=== PATIENT | female | born 1990 | race Caucasian/White ===

== ENCOUNTER 2018-12-02 10:08 | Emergency (ER) | payer OTHER ==
[~2018-12-02] VITALS: Ht 165.1 cm; Wt 65.3 kg
[2018-12-02 10:20] VITALS: BP 141/95
--- NOTE | 2018-12-02 10:26 | NUR ---
PT AMBULATED TO ER BED 05
--- NOTE | 2018-12-02 10:40 | NUR ---
PT BIB FRIEND TO THE ED WITH THE CHIEF C/O HEADACHE X TODAY. STATES HEADACHE 8/10 AT THIS TIME. VSS. PER PT, LAMINECTOMY WAS DONE ON October AND IT STARTED TO LEAK SINCE LAST NIGHT. PER PT IT LOOKS CLEAR. "THE GUAGE SOAKS EVERY 45 MINS." SOAKED GUAZE NOTED ON THE BACK. DENIES DIZZINESS OR BLURRY VISION. REPORTS NAUSEA. ER MD AWARE.
[2018-12-02] MEDS ORDERED: NACL 0.9% 1,000 ML IV ONE (11:45)
[2018-12-02] MEDS ORDERED: fentaNYL 0.05 MG/ML VIAL IVP ONE (11:45)
[2018-12-02] MEDS ORDERED: NACL 0.9% 1,000 ML IV SCH (11:56)
[2018-12-02] MEDS ORDERED: MORPHINE SULFATE 2 MG/ML SYR IVP PRN (12:00)
[2018-12-02] MEDS ORDERED: HYDROcodone/APAP 7.5/325 MG 1 TAB PO PRN (12:00)
[2018-12-02] MEDS ORDERED: ONDANSETRON 4 MG/2 ML VIAL IM/IVP PRN (12:00)
[2018-12-02] MEDS ORDERED: DOCUSATE SODIUM 100 MG GELCAP PO PRN (12:00)
[2018-12-02] MEDS ORDERED: ACETAMINOPHEN 325 MG TAB PO PRN (12:00)
--- NOTE | 2018-12-02 12:50 | NUR ---
NO IVF PER ER MD AT THIS TIME.
--- NOTE | 2018-12-02 14:10 | NUR ---
DRESSING CHANGED TO BACK.
--- NOTE | 2018-12-02 15:32 | NUR ---
Patient discharged with v/s stable. Written and verbal after care instructions given and explained. Patient alert, oriented and verbalized understanding of instructions. Ambulatory with steady gait. All questions addressed prior to discharge. ID band removed. Patient advised to follow up with PMD. Rx of MOTRIN AND TRAMADOL given. Patient educated on indication of medication including possible reaction and side effects. Opportunity to ask questions provided and answered.
[2018-12-02 15:33] VITALS: BP 120/78
== END 2018-12-02 15:32 | disposition home or self-care (01) ==
LOC: MED 10:08
DX: M96.89 Other intraoperative and postprocedural complications and disorders of the musculoskeletal system (principal); R51 Headache; Z88.2 Allergy status to sulfonamides; Y83.8 Other surgical procedures as the cause of abnormal reaction of the patient, or of later complication, without mention of misadventure at the time of the procedure
CPT/HCPCS: 71045; 81025; 96374; 99283; J3010; Q0092